=== PATIENT | male | born 1950 | race Caucasian/White ===

== ENCOUNTER → 2018-09-09 | Outpatient (CLI) | payer MEDICARE ==
[~2018-09-09] MED LIST: ACET1TAB25 PO; AEC81 PO; CEPH500T PO; CLOP75TA14 PO; CYAN10009 PO; DILT120C89 PO; FERR-82 PO; FOLI0.8T PO; GLUC1TAB21 PO; LATA2.5D2 OP; NITR1PAT10 TD
== END | disposition home or self-care (01) ==
LOC: RAH 09:41
PROVIDERS: ATTEND Internal Medicine
DX: M25.552 Pain in left hip (principal)
CPT/HCPCS: 73502